=== PATIENT | female | born 1980 | race Caucasian/White ===

== ENCOUNTER 2022-11-28 07:40 | Outpatient (CLI) | payer BC | END 2022-11-28 07:41 | disposition home or self-care (01) | LOC: CSHMAMMO 07:40 | PROVIDERS: ATTEND Obstetrics & Gynecology | DX: N63.10 Unspecified lump in the right breast, unspecified quadrant (principal) | CPT/HCPCS: 77066; G0279 ==

== ENCOUNTER 2024-02-22 12:54 | Outpatient (CLI) | payer BC | END 2024-02-22 12:55 | disposition home or self-care (01) | LOC: CSHMAMMO 12:54 | PROVIDERS: ATTEND Obstetrics & Gynecology | DX: Z15.09 Genetic susceptibility to other malignant neoplasm (principal); N63.10 Unspecified lump in the right breast, unspecified quadrant | CPT/HCPCS: 77066; G0279 ==